=== PATIENT | female | born 1960 | race Caucasian/White ===

== ENCOUNTER 2018-12-20 14:13 | Emergency (ER) | payer OTHER, SELFPAY ==
[2018-12-20 14:14] VITALS: BP 163/86; PULSE 63; RESP 16; TEMP 36.1; O2SAT 99; BMI 34.1
--- NOTE | 2018-12-20 14:27 | RAD_ITS ---
STUDY: X-RAY - UNILATERAL RIBS ( RIGHT ) WITH CHEST REASON FOR EXAM: Female, 58 years old. Patient fell several days ago. Right anterior rib pain. TECHNIQUE - RIBS: 4 view(s) of the ribs. TECHNIQUE - CHEST: Single frontal view of the chest. COMPARISON: None. FINDINGS - RIBS: There is no demonstrated acute rib fracture. FINDINGS - CHEST: There is mild stranding abutting the left lower heart border. The lungs are otherwise clear. There is no demonstrated pleural abnormality. There is borderline cardiomegaly. Normal mediastinum and reyes. Normal visualized pulmonary arteries. There is atherosclerotic tortuosity of the aortic arch and descending thoracic aorta. The thoracic spine is obscured by the mediastinum. 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 There is no demonstrated abnormality of the visualized soft tissue structures of the upper abdomen. RAD/Ribs Uni Min 3V w/PA Chest IMPRESSION: RIBS: No demonstrated rib fracture. CHEST: Mild atelectasis or scarring in the left lung base. Electronically Signed: Agustin Medina MD at 15:08 EDT Tel , Service support ,
--- NOTE | 2018-12-20 14:28 | ED.VIS.GEN ---
History of Present Illness Chief Complaint: Fall Detail of Chief Complaint: Fall, right rib injury Informant: Patient, Significant Other Onset: Weeks - 1 week Current Severity: Moderate Maximum Severity: Moderate Narrative: Patient presents with a one-week history of right rib pain. She states 1 week ago she crawled up on her kitchen island to hang up a sign. She lost her balance and fell from her knees onto the kitchen floor. She hit the back of her head and the right side of her ribs. She been having right rib pain, worse with movement. Today pain seems to be worse. She does have increased pain with deep breath. She took ibuprofen prior to arrival. Past Medical History - Allergies and Home Meds Allergies/Adverse Reactions: Allergies No Known Allergies Allergy (Verified 12/20/18 14:14) Primary Care Physician: Wilfrid Fleming MD [Primary Care Provider] - Prior records reviewed: Yes Past Medical History: - - Reviewed Lives: Spouse/ Significant Other Review of Systems General: Denies: Chills, Fever Eyes: Denies: Visual changes - bilaterally ENT: Denies: Bilateral ear pain Cardiovascular: Reports: Chest pain - Right lateral ribs Respiratory: Reports: Dyspnea. Denies: Cough Gastrointestinal: Denies: Abdominal pain, Nausea, Vomiting Genitourinary: Denies: Dysuria Musculoskeletal: Denies: Extremity Pain Skin: Denies: Abrasions Neurological: Denies: Headache Physical Exam Vital Signs/Narrative: Vital Signs Temp Pulse Resp BP Pulse Ox 12/20/18 14:14 96.9 F L 63 16 163/86 H 99 Inital Vital Signs reviewed: Yes General: Well nourished, Well developed Head: Normocephalic ENT: Moist mucous membranes Neck: Supple Cardiovascular: Regular rate, Regular rhythm Respiratory: No distress, CTA bilaterally, Chest tenderness - Right lateral lower chest wall tenderness. No crepitus. Abdomen: Soft, Nontender Skin: Normal color Neurological: Alert, Oriented x3 Psychological: Normal affect Diagnostic/Tx/Re-eval Impressions Ribs w/Chest X-Ray 12/20/18 14:27 IMPRESSION: RIBS: No demonstrated rib fracture. CHEST: Mild atelectasis or scarring in the left lung base. Electronically Signed: Agustin Medina MD at 15:08 EDT Tel , Service support , 12/20/18 14:27 Ribs Uni Min 3V w/PA Chest [RAD] Stat - Medical Decision Making Patient was given 1 tab of Brisbin here. On repeat evaluation she is sitting comfortably in a wheelchair. Test results are discussed with patient and at bedside. She will be given prescription for Brisbin at home and will continue ibuprofen. ED Disposition - Plan for ED Patient: Disposition: Home or Assisted Living Diagnosis: Rib contusion Instructions: RIB: CONTUSION vs MINOR FRACTURE Prescriptions: Hydrocodone Bitart/Apap 5-325 [Brisbin 5MG-325MG] 1 tablet PO Q6H PRN PRN 3 Days #10 tablet PRN Reason: Pain Referrals: Wilfrid Fleming MD [Primary Care Provider] - 1 Week
[2018-12-20] MEDS: HYDROcodone Bitartrate/Apap 5/325 Tablet PO (14:34)
== END 2018-12-20 15:37 | disposition home or self-care (01) ==
PROVIDERS: Emergency Provider Emergency Medicine; Family Provider Family Medicine; PCP Family Medicine
DX: S20.219A Contusion of unspecified front wall of thorax, initial encounter (principal); W17.89XA Other fall from one level to another, initial encounter; Y93.89 Activity, other specified; Y92.000 Kitchen of unspecified non-institutional (private) residence as the place of occurrence of the external cause; Y99.8 Other external cause status
CPT/HCPCS: 71101; 99283